=== PATIENT | male | born 1990 | race Caucasian/White ===

== ENCOUNTER 2021-05-20 00:39 | Emergency (ER) | payer SELFPAY ==
[~2021-05-20] VITALS: Ht 170.2 cm; Wt 90.0 kg
[2021-05-20 00:41] VITALS: BP 124/84
[2021-05-20] MEDS ORDERED: LIDOCAINE-MPF 1%, 5ML ONE (00:49)
[2021-05-20] MEDS ORDERED: LIDOCAINE 2%, 20ML INFIL ONE (01:00)
--- NOTE | 2021-05-20 01:02 | NUR ---
PT TO CT
[2021-05-20] MEDS ORDERED: NEOSPORIN OINT. PKT 1 PACKET ONE (01:57)
--- NOTE | 2021-05-20 02:12 | NUR ---
pt verbalized understanding of discharge instructions. Pt escorted by pd .
== END 2021-05-20 02:18 | disposition home or self-care (01) ==
LOC: ED 02:17
DX: S06.0X0A Concussion without loss of consciousness, initial encounter (principal); S02.2XXA Fracture of nasal bones, initial encounter for closed fracture; S01.81XA Laceration without foreign body of other part of head, initial encounter; F10.129 Alcohol abuse with intoxication, unspecified; F17.210 Nicotine dependence, cigarettes, uncomplicated; X58.XXXA Exposure to other specified factors, initial encounter; Y93.89 Activity, other specified; Y92.009 Unspecified place in unspecified non-institutional (private) residence as the place of occurrence of the external cause; Y99.8 Other external cause status; Y90.0 Blood alcohol level of less than 20 mg/100 ml
CPT/HCPCS: 12051; 70450; 72125; 99406

== ENCOUNTER 2021-05-27 10:56 | Inpatient (IN) | payer MEDICAID ==
[~2021-05-27] VITALS: Ht 170.2 cm; Wt 92.1 kg
--- NOTE | 2021-05-27 11:12 | NUR ---
PT BIBA FOR C/O LEFT JAW PAIN, PT REPORTS HX OF JAW FRACTURE WITH PLATE IN PLACE 4 YEARS AGO, PT IS WORRIED SOMETHING IS WRONG WITH PLATE.
[2021-05-27] MEDS ORDERED: SODIUM CHLORIDE FLUSH 10ML SYR IVF ONE (11:30)
[2021-05-27] MEDS ORDERED: AMPICILLIN/SULBACTAM 3 GM in SODIUM CHLORIDE 0.9% 100 ML IV ONE (11:30)
[2021-05-27 11:44] LABS: ALBUMIN 3.7 g/dL (3.4-5.0); ANION GAP 8 mmol/L (5-15); CALCIUM 8.8 mg/dL (8.5-10.1); CHLORIDE 109 mmol/L (98-107); CREATININE 0.72 mg/dL (0.7-1.3)
[2021-05-27 11:49] LABS: BASOPHILS % (AUTO) 1 % (0-1); EOSINOPHILS % (AUTO) 1 % (1-7); LYMPHOCYTES % (AUTO) 35 % (22-44); MEAN CORPUSCULAR HEMOGLOBIN 36.9 pg (27.5-34.5); MEAN CORPUSCULAR HGB CONC 35.5 g/dL (33.2-36.2); MEAN PLATELET VOLUME 9.3 fL (7.4-10.4); MONOCYTES % (AUTO) 11 % (2-9); NEUTROPHILS % (AUTO) 52 % (42-75); PLATELET COUNT 161 x10^3/uL (130-400); RED BLOOD COUNT 4.02 x10^6/uL (4.38-5.82); RED CELL DISTRIBUTION WIDTH 14.8 % (9.4-14.8)
[2021-05-27 12:04] LABS: <PLATELET ESTIMATE> ADEQUATE; <PLT MORPHOLOGY> NORMAL PLT MORPH; ANISOCYTOSIS 1+
[2021-05-27] MEDS ORDERED: OMNIPAQUE 350 MG/ML, 100ML BOTTLE ONE (12:15)
--- NOTE | 2021-05-27 14:40 | NUR ---
DR. TERRY AT BEDSIDE TO DISCUSS POC.
[2021-05-27] MEDS ORDERED: SODIUM CHLORIDE FLUSH 10ML SYR IVF PRN (15:00)
--- NOTE | 2021-05-27 15:06 | NUR ---
HOSPITALIST DR. KHAN AT BEDSIDE FOR EVAL.
[2021-05-27] MEDS ORDERED: KETOROLAC 30 MG/1 ML IV PRN (16:00)
[2021-05-27] MEDS ORDERED: morphine SULFATE 10 MG/ML, 1ML IVPush PRN (16:00)
[2021-05-27] MEDS ORDERED: ENALAPRILAT 1.25 MG/ML, 2ML IVPush PRN (16:00)
[2021-05-27] MEDS ORDERED: ACETAMINOPHEN 325 MG TABLET PO PRN (16:00)
[2021-05-27] MEDS ORDERED: ONDANSETRON ODT 4 MG PO PRN (16:00)
[2021-05-27] MEDS ORDERED: ONDANSETRON 2MG/ML, 2ML IVPush PRN (16:00)
--- NOTE | 2021-05-27 16:13 | NUR ---
REPORT TO ALISSON VYAS.
[2021-05-27] MEDS ORDERED: POTASSIUM CHLORIDE 40 MEQ in SODIUM CHLORIDE 0.9% 500 ML IV ONE (16:53)
[2021-05-27 17:15] VITALS: BP 126/80
[2021-05-27] MEDS ORDERED: NICOTINE 21 MG/24 HR PATCH.TD24 ONE (17:18)
[2021-05-27] MEDS: SODIUM CHLORIDE 0.9% 1,000 ML IV SCH (17:40)
[2021-05-27] MEDS: NICOTINE 21 MG/24 HR PATCH.TD24 TD SCH (17:42)
[2021-05-27 19:16] VITALS: BP 118/74
[2021-05-27] MEDS: AMPICILLIN/SULBACTAM 3 GM in SODIUM CHLORIDE 0.9% 100 ML IV SCH (20:02)
[2021-05-27] MEDS: LORazepam 2 MG/ML, 1ML IVPush PRN (22:40)
[2021-05-28 01:11] VITALS: BP 144/89
[2021-05-28] MEDS: AMPICILLIN/SULBACTAM 3 GM in SODIUM CHLORIDE 0.9% 100 ML IV SCH ×4 (01:56→23:01)
[2021-05-28] MEDS: SODIUM CHLORIDE 0.9% 1,000 ML IV SCH ×2 (05:13→14:01)
[2021-05-28 05:22] LABS: BASOPHILS % (AUTO) 1 % (0-1); EOSINOPHILS % (AUTO) 2 % (1-7); LYMPHOCYTES % (AUTO) 28 % (22-44); MEAN CORPUSCULAR HEMOGLOBIN 37.8 pg (27.5-34.5); MEAN CORPUSCULAR HGB CONC 36.2 g/dL (33.2-36.2); MEAN PLATELET VOLUME 9.3 fL (7.4-10.4); MONOCYTES % (AUTO) 14 % (2-9); NEUTROPHILS % (AUTO) 56 % (42-75); PLATELET COUNT 130 x10^3/uL (130-400); RED CELL DISTRIBUTION WIDTH 15.1 % (9.4-14.8)
[2021-05-28 05:27] LABS: ANION GAP 5 mmol/L (5-15); CHLORIDE 111 mmol/L (98-107); CREATININE 0.71 mg/dL (0.7-1.3)
[2021-05-28 08:10] VITALS: BP 140/103
[2021-05-28] MEDS ORDERED: SUCCINYLCHOLINE 20 MG/ML, 10ML ONE (08:25)
[2021-05-28] MEDS ORDERED: ONDANSETRON 2MG/ML, 2ML ONE (08:25)
[2021-05-28] MEDS ORDERED: NICOTINE 21 MG/24 HR PATCH.TD24 TD SCH (09:00)
[2021-05-28] MEDS: LORazepam 2 MG/ML, 1ML IVPush PRN (11:49)
[2021-05-28 13:18] VITALS: BP 149/94
[2021-05-28] MEDS ORDERED: AMOX1TAB64 PO (16:41)
[2021-05-28] MEDS: NICOTINE 21 MG/24 HR PATCH.TD24 TD SCH (17:21)
[2021-05-28 18:50] VITALS: BP 154/91
[2021-05-28] MEDS ORDERED: LIDOCAINE/PF 1%-EPI 1:200K, 30 ML ONE ×2 (19:06→19:28)
[2021-05-28] MEDS ORDERED: PROPOFOL 10 MG/ML, 20ML ONE (19:26)
[2021-05-28] MEDS ORDERED: MIDAZOLAM 1 MG/ML, 2ML ONE (19:26)
[2021-05-28] MEDS ORDERED: FENTANYL PF 250 MCG/5ML ONE (19:26)
[2021-05-28] MEDS ORDERED: HYDROmorphone 1 MG/ML, 1ML INJ ONE (21:17)
[2021-05-28] MEDS: HYDROmorphone 1 MG/ML, 1ML INJ IVPush PRN ×2 (21:18→21:24)
[2021-05-28] MEDS ORDERED: MEPERIDINE/PF 25MG/0.5ML IVPush PRN (21:30)
[2021-05-28] MEDS ORDERED: ACETAMINOPHEN 325 MG TABLET PO PRN (21:30)
[2021-05-28] MEDS ORDERED: FENTANYL PF 100 MCG/2ML IV PRN (21:30)
[2021-05-28] MEDS ORDERED: PROMETHAZINE 25 MG/ML, 1ML IVPush PRN (21:30)
[2021-05-28] MEDS ORDERED: OXYcodone 5 MG/5 ML ORAL.SOL UDC PO PRN (21:30)
[2021-05-28] MEDS ORDERED: DIAZEPAM 5 MG/ML, 2ML IVPush PRN (21:30)
[2021-05-28] MEDS ORDERED: ONDANSETRON 2MG/ML, 2ML IVPush PRN (21:30)
[2021-05-29 00:05] VITALS: BP 139/84
[2021-05-29] MEDS: CHLORHEXIDINE 15 ML UDC MM SCH ×5 (01:20→23:12)
[2021-05-29 03:29] VITALS: BP 137/76
[2021-05-29] MEDS: SODIUM CHLORIDE 0.9% 1,000 ML IV SCH ×2 (05:31→16:28)
[2021-05-29] MEDS: AMPICILLIN/SULBACTAM 3 GM in SODIUM CHLORIDE 0.9% 100 ML IV SCH ×4 (05:31→23:12)
[2021-05-29 07:00] VITALS: BP 147/97
[2021-05-29 14:20] VITALS: BP 148/90
[2021-05-29] MEDS: NICOTINE 21 MG/24 HR PATCH.TD24 TD SCH (17:31)
[2021-05-29 19:06] VITALS: BP 131/89
[2021-05-30 02:23] VITALS: BP 137/81
[2021-05-30] MEDS: SODIUM CHLORIDE 0.9% 1,000 ML IV SCH (02:30)
[2021-05-30] MEDS: CHLORHEXIDINE 15 ML UDC MM SCH ×2 (05:41→11:30)
[2021-05-30] MEDS: AMPICILLIN/SULBACTAM 3 GM in SODIUM CHLORIDE 0.9% 100 ML IV SCH (05:41)
[2021-05-30 06:30] VITALS: BP 155/99
[2021-05-30] MEDS ORDERED: IBUPROFEN 200 MG TABLET PO PRN (08:00)
[2021-05-30] MEDS ORDERED: IBUP200T49 PO (08:00)
[2021-05-30] MEDS ORDERED: CHLO473M MM (08:00)
== END 2021-05-30 14:33 | disposition home or self-care (01) | DRG 98 ==
LOC: ED 12:41 → INTOOBSV 14:58 → OBSVTOIN 14:58 → EDIP 14:58 → SUATTDRO 15:35 → 4NE 16:35 → DCLOUNGE 05-30 14:21
PROVIDERS: ADMIT Hospitalist; ATTEND Hospitalist
PROC: 0WP Anatomical Regions, General, Removal (ICD-10-PCS; principal; 2021-05-27)
PROC: 0W930ZZ Drainage of Oral Cavity and Throat, Open Approach (ICD-10-PCS; 2021-05-28)
PROC: 0CDXXZ1 Extraction of Lower Tooth, Multiple, External Approach (ICD-10-PCS; 2021-05-28)
DX: K04.7 Periapical abscess without sinus (principal); T84.228A Displacement of internal fixation device of other bones, initial encounter; K04.4 Acute apical periodontitis of pulpal origin; K12.2 Cellulitis and abscess of mouth; E87.6 Hypokalemia; K02.9 Dental caries, unspecified; J32.0 Chronic maxillary sinusitis; L03.211 Cellulitis of face; F17.210 Nicotine dependence, cigarettes, uncomplicated; F10.10 Alcohol abuse, uncomplicated; Z59.0 Homelessness; Z91.19 Patient's noncompliance with other medical treatment and regimen; Z90.49 Acquired absence of other specified parts of digestive tract
CPT/HCPCS: 36415; 70100; 70487; 80048; 82040; 83735; 85025; 87070; 87075; 87205; 87635; 96374; G0378; J0295; J1170; J1885; J2250; J2405; J2704; J3010; J3480; Q9967; J0330; J2060; J2270; J7030; J7040

== ENCOUNTER 2021-06-18 11:44 | Emergency (ER) | payer MEDICAID ==
[~2021-06-18] VITALS: Ht 170.2 cm; Wt 86.7 kg
[~2021-06-18 11:44] MED LIST: AMOX1TAB64 PO; CHLO473M MM; IBUP200T49 PO
[2021-06-18 12:01] VITALS: BP 135/101
--- NOTE | 2021-06-18 12:33 | NUR ---
PT AMBULATED IN D/T LEFT SIDE SWELLING OF FACE. PT STATES "I JUST HAD SURGERY HERE A MONTH AGO AND HAVEN'T BEEN ABLE TO GET MY ABX BECAUSE THEY WOULDN'T GIVE THEM TO ME AT LONG TERM." PT RESTING IN [facility], MONITORING IN PLACE, CHANELLE AT THIS TIME, AMANUEL.
== END 2021-06-18 13:18 | disposition home or self-care (01) ==
LOC: ED 12:26
DX: K02.9 Dental caries, unspecified (principal); Z91.19 Patient's noncompliance with other medical treatment and regimen
CPT/HCPCS: 99283